=== PATIENT | female | born 1960 | race Two or more races ===

== ENCOUNTER 2024-07-20 06:17 | Day surgery (SDC) | payer OTHER ==
[~2024-07-20] VITALS: Ht 160 cm; Wt 80.7 kg
[~2024-07-20 06:17] MED LIST: CYAN-17 PO; CYCL-837 PO; ERTU15TA PO; GABA-1250 PO; HYDR-4902 PO; IBUP-1455 PO; METF-372 PO; OMEP-448 PO; SEMA2INJ3 SC
[2024-07-20] MEDS ORDERED: ceFAZolin 2 GM/D5W100ml 100 ML IV ONE (07:04)
[2024-07-20] MEDS ORDERED: ACETAMINOPHEN IV 100 ML IV ONE (08:13)
[2024-07-20] MEDS ORDERED: CELECOXIB 100 MG CAP PO ONE (08:15)
[2024-07-20] MEDS ORDERED: GABAPENTIN 300 MG CAP PO ONE (08:15)
[2024-07-20] MEDS: GABAPENTIN 300 MG CAP ONE (08:20)
[2024-07-20] MEDS: ACETAMINOPHEN IV 1000 MG/100ML (10MG/ML) IV ONE (08:20)
[2024-07-20] MEDS: CELECOXIB 100 MG CAP ONE (08:20)
[2024-07-20] MEDS ORDERED: DexAMETHasone SOD PHOS 10MG/1ML VIAL INJ ONE (08:39)
[2024-07-20] MEDS ORDERED: GLYCOPYRROLATE 0.2 MG/ML 1ML VIAL ONE (08:39)
[2024-07-20] MEDS ORDERED: KETOROLAC TROMETH 30 MG/ML 1ML VIAL ONE (08:39)
[2024-07-20] MEDS ORDERED: fentaNYL CITRATE 100 MCG/2 ML VL ONE (08:39)
[2024-07-20] MEDS ORDERED: ONDANSETRON HCL 4 MG/2 ML VIAL ONE (08:39)
[2024-07-20] MEDS ORDERED: PROPOFOL 10 MG/ML 20 ML IV ONE (08:39)
[2024-07-20] MEDS ORDERED: LIDOCAINE 1% INJ PF 5ML AMP ONE (08:39)
[2024-07-20] MEDS ORDERED: LIDOCAINE HCL 2% TOP JELLY 5ML TOP ONE (09:58)
[2024-07-20] MEDS ORDERED: LIDOCAINE 2% (LOCAL ANESTH.) PF 5ml SDV ONE (09:59)
[2024-07-20] MEDS ORDERED: LABETALOL HCL 5 MG/ML ML 20ML VIAL IV ONE (10:20)
[2024-07-20] MEDS: LIDOCAINE 1% HCL (LOCAL ANESTH.) INJ 20ML MDV ONE (10:23)
[2024-07-20] MEDS: BUPIVACAINE 0.25% INJ 50ML VIAL ONE (10:23)
[2024-07-20 11:03] VITALS: PULSE 97; RESP 20; TEMP 97.2; O2SAT 96
[2024-07-20] MEDS ORDERED: hydrALAZINE HCL 20 MG/ML VL IV PRN (11:15)
[2024-07-20] MEDS ORDERED: ePHEDrine SULFATE 50 MG/ML AMP IV PRN (11:15)
[2024-07-20] MEDS ORDERED: NALOXONE HCL 0.4 MG/ML VIAL IV PRN (11:15)
[2024-07-20] MEDS ORDERED: fentaNYL CITRATE 100 MCG/2 ML VL IV PRN (11:15)
[2024-07-20] MEDS ORDERED: FLUMAZENIL 0.1 MG/ML INJ 10ML MDV IV PRN (11:15)
[2024-07-20] MEDS ORDERED: ONDANSETRON HCL 4 MG/2 ML VIAL IV PRN (11:15)
[2024-07-20] MEDS ORDERED: HYDROmorphone HCL 2 MG/ML VL/or syr ONE (11:24)
[2024-07-20] MEDS: HYDROmorphone HCL 2 MG/ML VL/or syr IV PRN (11:26)
[2024-07-20] MEDS: oxyCODONE HCL 5MG TAB PO PRN (12:10)
--- NOTE | 2024-07-20 12:28 | DVH ---
FLUOROSCOPY TIME: 15 seconds TECHNIQUE: Intraoperative radiographs of the left wrist were obtained. COMPARISON: None FINDINGS: Refer to intraoperative report for further evaluation. IMPRESSION: Refer to intraoperative report for further evaluation.
[2024-07-20 12:33] VITALS: BP 158/99; PULSE 95; RESP 18; O2SAT 95
--- NOTE | 2024-07-21 06:28 | DVHOP2 ---
Operative Report - 2 Report Details Date: 07/20/24 Preop Diagnosis: Left distal radius fracture Postop Diagnosis: Left distal radius fracture Surgeon: Werner Lizama MD Anesthesiologist: Rainer DOUGLAS Anesthesia: General, Regional Implant: ITS Distal radius plate Consent: The patient was informed of the risks and benefits of the procedure. These include but are not limited to complications of anesthesia, postoperative infection, incomplete relief of symptoms, recurrence of symptoms, damage to blood vessels, nerves and tendons, deep venous thrombosis, pulmonary embolism and possible need for repeat surgery in the future. Estimated Blood Loss: 5 cc Indications for Surgery: displaced and comminuted 3 part intra-articular distal radius fracture Name of Procedure Performed 1. Open reduction internal fixation of left distal radius fracture; 2. INtraop fluoro Procedure Details Procedure Details: CLINICAL SUMMARY: Risks/benefits/options/alternatives were discussed at length with patient and his family. Nonoperative versus operative management was presented to her. Risks include but not exclusive to bleeding, infection, nerve injury, tendon or ligament damage, hardware failure, nonunion, malunion, need for further surgery, amputation, DVT, and . She understood these risks and wished to proceed with surgery. OPERATION: The patient was brought from the [facility] unit and placed on the operating table in a supine position and administered general anesthetic. Tourniquet was placed around the left upper extremity. Once adequate anesthesia had been obtained, the left upper extremity was prepped and draped in the usual sterile manner. A time out was performed. The upper extremity was then elevated and exsanguinated using an Esmarch dressing. The tourniquet was elevated to 250 mmHg. At this time an approximately 8 cm longitudinal incision was then made overlying the right flexor carpi radialis tendon from the flexion crease to the wrist proximally. This was carried down to the flexor carpi radialis, which was then retracted ulnarly. The floor of the flexor carpi radialis was then incised exposing the flexor pronator muscles. The flexor pollicis longus was retracted ulnarly and the pronator quadratus was longitudinally incised 1 cm from its origin. It was then elevated off of the fracture site exposing the fracture site, which was dorsally displaced. This was an intraarticular three-part fracture. Under image control, the volar pieces and dorsal pieces were then carefully manipulated and reduced. Then, 2.06 two-inch K-wires were drilled radial into the volar ulnar fragment and then a second K-wire was then drilled from the dorsal radial to the dorsal ulnar piece. The fracture was then manipulated. The fracture ends were copiously irrigated with normal saline and curetted and then the fracture was reduced in the usual fashion by recreating the defect and distracting it. Further K-wires were then placed through the radial styloid into the proximal fragment. Patient had significant comminution. A volar distal radius plate was then picked and using two K-wires it was well seated. We checked with fluoro. We then used a combination of locking/nonlocking screws and pegs. There was excellent reduction of the fragments and the fracture; excellent reduction of the intraarticular component and the fracture. Incision was then copiously irrigated with normal saline. Homeostasis was maintained with electrocautery. The pronator quadratus was closed with 3-0 Vicryl and the above skin incisions were closed proximally with 3-0 nylon. A large bulky dressing was then applied with a volar short-arm splint maintaining the wrist in neutral position. The tourniquet was let down. The fingers were immediately pink. The patient was awakened and taken to the recovery room in good condition. There were no operative complications. The patient tolerated the procedure well. Condition Good Disposition Home WERNER LIZAMA MD Jul 21, 2024 06:28
== END 2024-07-20 12:35 | disposition home or self-care (01) ==
LOC: SUR 06:17
PROVIDERS: ATTEND Orthopaedic Surgery Adult Reconstructive Orthopaedic Surgery
DX: S52.572A Other intraarticular fracture of lower end of left radius, initial encounter for closed fracture (principal); E11.9 Type 2 diabetes mellitus without complications; I10 Essential (primary) hypertension; Z90.710 Acquired absence of both cervix and uterus; Z98.890 Other specified postprocedural states; Z79.84 Long term (current) use of oral hypoglycemic drugs; Z91.040 Latex allergy status; X58.XXXA Exposure to other specified factors, initial encounter; Y93.89 Activity, other specified; Y92.89 Other specified places as the place of occurrence of the external cause; Y99.8 Other external cause status
CPT/HCPCS: 25609; 64415; 73100; 82962; C1713; J1100; J1171; J1885; J2003; J2405; J2704; J3010; 76000; J0131; J3490